=== PATIENT | female | born 1990 | race African-American/Black ===

== ENCOUNTER 2018-02-14 17:52 | Inpatient (IN) | payer OTHER ==
[~2018-02-14] VITALS: Ht 167.6 cm; Wt 99.8 kg
[2018-02-14 20:23] LABS: ABSOLUTE BASOPHIL COUNT 0 /CUMM (0.0-0.2); ABSOLUTE EOSINOPHIL COUNT 0 /CUMM (0.0-0.7); ABSOLUTE MONOCYTE COUNT 0.9 /CUMM (0.10-0.60); BASOPHIL % 0.3 % (0.0-2.0); EOSINOPHIL % 0.2 % (0-5); GRANULOCYTE % 75.2 % (42.2-75.2); HEMATOCRIT 37.2 % (37-47); MEAN CORPUSCULAR HGB 30.1 PG (27.0-31.0); MEAN CORPUSCULAR VOLUME 88.4 FL (81.0-99.0); MEAN PLATELET VOLUME 10.6 FL (7.4-10.4); PLATELET COUNT 249 /CUMM (130-400); RBC DISTRIBUTION WIDTH 13.5 % (11.5-14.5); RED BLOOD CELL CT 4.21 /CUMM (4.20-5.40); WHITE BLOOD CELL COUNT 11.9 /CUMM (4.8-10.8)
--- NOTE | 2018-02-14 20:56 | PN- Obstetrical ---
Subjective Subjective: C/0 PAIN Objective Last 24 Hrs of Vital Signs/I&O VSS ASPER CHART FHR CATEGORY 1 Physical Exam: PE DELANO FEMALE ABD SOFT EFW [id number] Obstetric Exam Dilation (cm): 5 Effacement (%): 90 Station: 0 Membranes: SROM Fluid: clear Multiple Gestation? No Contractions: Q3 MINUTES Assessment/Plan Assessment/Plan ASSESS TERMPREGNANCY SROM PLAN OBSERVE FOR STADOL
[2018-02-14 23:34] VITALS: BP 116/73
--- NOTE | 2018-02-15 09:28 | Labor & Delivery Summary ---
Delivery Summary Vaginal Delivery: Vaginal: vertex Episiotomy/Lacerations: Type: 2ND DEGREE LACERATION Repair: 3 0 Placenta: Placenta: spontanteous, normal, 3 vessel Anesthesia: block Additional Comments: OVER 2ND DEGREE LACERATION VIABLE FEMALE . PLACENTA BY CCT INTACT.2ND DEGREE REPAIRED IN LAYERS WITH 3 0 SUTURE.3 VESSEL CORD
[2018-02-16 08:34] LABS: ABSOLUTE BASOPHIL COUNT 0 /CUMM (0.0-0.2); ABSOLUTE EOSINOPHIL COUNT 0.1 /CUMM (0.0-0.7); ABSOLUTE GRANULOCYTE CT 10.1 /CUMM (1.4-6.5); ABSOLUTE LYMPH COUNT 2.5 /CUMM (1.2-3.4); ABSOLUTE MONOCYTE COUNT 0.9 /CUMM (0.10-0.60); BASOPHIL % 0.4 % (0.0-2.0); EOSINOPHIL % 0.6 % (0-5); GRANULOCYTE % 73.8 % (42.2-75.2); HEMATOCRIT 33.1 % (37-47); MEAN CORPUSCULAR HGB CONC 33.9 G/DL (33.0-37.0); MEAN CORPUSCULAR VOLUME 88.6 FL (81.0-99.0); MEAN PLATELET VOLUME 10.8 FL (7.4-10.4); PLATELET COUNT 224 /CUMM (130-400); RBC DISTRIBUTION WIDTH 13.9 % (11.5-14.5); RED BLOOD CELL CT 3.74 /CUMM (4.20-5.40); WHITE BLOOD CELL COUNT 13.7 /CUMM (4.8-10.8)
[2018-02-17] MEDS ORDERED: IBUPROFEN800 M1 PO (08:06)
== END 2018-02-17 10:50 | DRG 775 ==
LOC: CBCO 17:52 → GNO 19:38
PROVIDERS: Specialist
PROC: 0KQM0ZZ Repair Perineum Muscle, Open Approach (ICD-10-PCS; principal; 2018-02-15)
PROC: 10E0XZZ Delivery of Products of Conception, External Approach (ICD-10-PCS; principal; 2018-02-15)
DX: O70.1 Second degree perineal laceration during delivery (principal); Z37.0 Single live birth; Z3A.38 38 weeks gestation of pregnancy
CPT/HCPCS: 87070; GNOP; GNOS; 81001; 84112; 87071; 87086; J0290; J7120